=== PATIENT | male | born 1980 | race African-American/Black ===

== ENCOUNTER 2018-10-06 00:14 | Emergency (ER) | payer OTHER ==
[2018-10-06 00:38] VITALS: BMI 20.7
--- NOTE | 2018-10-06 02:16 | PDOC ---
History of Present Illness <Oz Hernandez - Last Filed: 10/06/18 04:54> - History of Present Illness Initial Comments: 38-year-old male with history of seizures presenting with seizure. Patient was watching television at home when he started seizing. Patient is taking Keppra twice a day and has not recently missed a dose. Last saw a neurologist at [facility] over five years ago. He does not know the name of the doctor who refills his Keppra. The seizure lasted for a couple minutes. He fell and hit the left side of his head. Patient reports tongue biting, but no urinary or fecal incontinence. Patient was confused for about five minutes until EMS arrived. Patient currently feels like he is at his baseline. Last seizures were two months ago and in Jan 2016. While he reports heavy alcohol use in the past, he only reports having only one drink last night. No recreational drug use. Denies headache, weakness, lightheadedness, dizziness, or focal neurologic defects. No nausea and vomiting. No fever, chills, chest pain, or shortness of breath. <Gaby Dangelo - Last Filed: 10/07/18 12:48> - General Chief Complaint: Seizure Stated Complaint: SEIZURES Time Seen by Provider: 10/06/18 01:11 Past History <Oz Hernandez - Last Filed: 10/06/18 04:54> - Past Medical History COPD: No Seizures: Yes - Suicide/Smoking/Psychosocial Hx Smoking History: Current every day smoker Number of Cigarettes Smoked Daily: 4 Information on smoking cessation initiated: No <Gaby Dangelo - Last Filed: 10/07/18 12:48> - Past Medical History Allergies/Adverse Reactions: Allergies Allergy/AdvReac Type Severity Reaction Status Date / Time No Known Allergies Allergy Verified 10/06/18 00:38 Home Medications: Ambulatory Orders levETIRAcetam [Keppra -] 500 mg PO BID #60 tablet 10/06/18 Review of Systems - Review of Systems Comments:: Constitutional: no fever, no chills HEENT: no throat pain, no dysphagia Cardiovascular: no chest pain, no palpitations Respiratory: no cough, no shortness of breath Gastrointestinal: no abdominal pain, no nausea, no vomiting Genitourinary: no dysuria, no frequency Musculoskeletal: no myalgia, no arthralgia Skin: +swelling, no itching Neurologic: no headache, no dizziness <Gaby Dangelo - Last Filed: 10/07/18 12:48> *Physical Exam - Vital Signs Last Vital Signs Temp Pulse Resp BP Pulse Ox 98 F 78 18 162/95 98 10/06/18 00:35 10/06/18 00:35 10/06/18 00:35 10/06/18 00:35 10/06/18 00:35 <Oz Hernandez - Last Filed: 10/06/18 04:54> - Vital Signs Last Vital Signs Temp Pulse Resp BP Pulse Ox 98 F 78 18 162/95 98 10/06/18 00:35 10/06/18 00:35 10/06/18 00:35 10/06/18 00:35 10/06/18 00:35 - Physical Exam Comments: General: Awake, alert, and fully oriented, in no acute distress Head: Swelling around left eye, Swelling on left side of head; no wounds or lesions Eyes: EOMI, sclera anicteric ENT: Moist mucus membranes; tongue lacerations present on right and left side of tongue, hemostatic Neck: Normal ROM, supple Lungs: Lungs clear, Normal breath sounds Cardio: Regular rhythm, S1 and S2 present Abdomen: Soft, nontender. No guarding, no rebound, no masses Extremities: Normal range of motion, Distal pulses present SKIN: Warm, Dry, normal turgor Neurologic: Cranial nerves II through XII grossly intact. Normal speech, sensation, strength, coordination. Tremors noted in hands bilaterally. No pronator drift. Tongue fasciulations present. <Gaby Dangelo - Last Filed: 10/07/18 12:48> ED Treatment Course - LABORATORY CBC & Chemistry Diagram: 10/06/18 02:18 10/06/18 02:18 - ADDITIONAL ORDERS Additional order review: Laboratory Results 10/06/18 10/06/18 10/06/18 02:51 02:18 02:18 Sodium 135 L Potassium 4.1 Chloride 96 L Carbon Dioxide 32 Anion Gap 7 L BUN 8 Creatinine 1.0 Creat Clearance w eGFR > 60 POC Glucometer 97.34123 Random Glucose 95 Calcium 9.6 Total Bilirubin 1.5 H AST 142 H ALT 70 H Alkaline Phosphatase 100 Total Protein 8.9 H Albumin 4.5 Alcohol, Quantitative < 3.0 10/06/18 10/06/18 02:51 02:18 RBC 4.62 MCV 92.1 MCHC 34.7 RDW 13.9 MPV 8.3 Neutrophils % 83.1 H Lymphocytes % 8.1 Monocytes % 7.8 Eosinophils % 0.3 Basophils % 0.7 POC Glucometer 97.88407 - Medications Given in the ED: ED Medications Discontinued Medications Generic Name Dose Route Start Last Admin Trade Name Siddhartha PRN Reason Stop Dose Admin Sodium Chloride 1,000 mls @ 1,000 mls/hr 10/06/18 02:17 10/06/18 02:33 Normal Saline - IV 10/06/18 03:16 1,000 mls/hr ASDIR STA Administration <Oz Hernandez - Last Filed: 10/06/18 04:54> - LABORATORY CBC & Chemistry Diagram: 10/06/18 02:18 10/06/18 02:18 <Gaby Dangelo - Last Filed: 10/07/18 12:48> Medical Decision Making - Medical Decision Making 38-year-old male with history of seizures presenting with seizure. -DDX includes but not limited to seizure, syncopal episode, trauma, tumor, infection, etoh withdrawal, hypoglycemia, recreational drug use -Labs -EKG 10/06/18 02:27 Patient care assumed by Dr. Hernandez 10/06/18 02:58 <Gaby Dangelo - Last Filed: 10/07/18 12:48> *DC/Admit/Observation/Transfer <Oz Hernandez - Last Filed: 10/06/18 04:54> <Gaby Dangelo - Last Filed: 10/07/18 12:48> Diagnosis at time of Disposition: Breakthrough seizure - Discharge Dispostion Disposition: HOME Condition at time of disposition: Stable - Prescriptions Prescriptions: levETIRAcetam [Keppra -] 500 mg PO BID #60 tablet - Referrals Referrals: Yonny Figueroa MD [Staff Physician] - Call tomorrow - Patient Instructions Printed Discharge Instructions: DI for Seizure Disorder -- Adult
[2018-10-06] MEDS ORDERED: SODIUM CHLORIDE 1,000 ML IV STA (02:17)
[2018-10-06 02:25] LABS: BASO % 0.7 % (0-2.0); EOS % 0.3 % (0-4.5); HEMATOCRIT 42.6 % (35.4-49); HEMOGLOBIN 14.8 GM/dL (11.7-16.9); LYMPH % 8.1 % (8-40); MCHC 34.7 g/dl (32.0-35.9); MEAN CELL VOLUME 92.1 fl (80-96); MEAN PLT VOLUME 8.3 fl (7.5-11.1); MONO % 7.8 % (3.8-10.2); NEUT % 83.1 % (42.8-82.8); PLATELET COUNT 115 K/MM3 (134-434); RBC 4.62 M/mm3 (4.00-5.60); RDW 13.9 % (11.9-15.9); WHITE BLOOD COUNT 6.5 K/mm3 (4.0-10.0)
[2018-10-06 02:49] LABS: ALBUMIN 4.5 g/dl (3.4-5.0); ALK PHOS 100 U/L (45-117); ANION GAP 7 MMOL/L (8-16); BILIRUBIN,TOTAL 1.5 mg/dL (0.2-1); BLOOD UREA NITROGEN 8 mg/dL (7-18); CALCIUM 9.6 mg/dL (8.5-10.1); CHLORIDE 96 mmol/L (98-107); CO2 32 mmol/L (21-32); GLUCOSE,RANDOM 95 mg/dL (74-106); POTASSIUM 4.1 mmol/L (3.5-5.1); SGOT/AST 142 U/L (15-37); SGPT/ALT 70 U/L (13-61); SODIUM 135 mmol/L (136-145); TOT PROT 8.9 g/dl (6.4-8.2)
--- NOTE | 2018-10-06 06:01 | PDOC ---
Attending Attestation - Resident Resident Name: Gaby Dangelo - ED Attending Attestation I have performed the following: I have examined & evaluated the patient, The case was reviewed & discussed with the resident, I agree w/resident's findings & plan, Exceptions are as noted - HPI HPI: 10/06/18 05:53 breakthrough seizure adherent to keppra endorses daily beer consumption to me - Physicial Exam PE: 10/06/18 05:54 awake and alert slightly tremoulous ecchymosis and abrasion around L eye but normal VA and EOM - Medical Decision Making 10/06/18 06:01 breakthrough seizure observed overnight in ED counseled re: etoh use neurology fu
[2018-10-06 06:11] VITALS: BP 126/71; PULSE 77; TEMP 98.2
--- NOTE | 2018-10-06 10:28 | EKG ---
Test Reason : Blood Pressure : / mmHG Vent. Rate : 086 BPM Atrial Rate : 086 BPM P-R Int : 148 ms QRS Dur : 092 ms QT Int : 392 ms P-R-T Axes : 071 078 069 degrees QTc Int : 469 ms NORMAL SINUS RHYTHM VOLTAGE CRITERIA FOR LEFT VENTRICULAR HYPERTROPHY SEPTAL INFARCT , AGE UNDETERMINED ABNORMAL ECG NO PREVIOUS ECGS AVAILABLE Confirmed by PAN CHRIS MD ([id number]) on 10/06/2018 10:27:53 AM Referred By: Confirmed By:PAN CHRIS MD
== END 2018-10-06 06:11 | disposition home or self-care (01) ==
LOC: JER 00:14
PROC: 3E0337Z Introduction of Electrolytic and Water Balance Substance into Peripheral Vein, Percutaneous Approach (ICD-10-PCS; principal; 2018-10-06)
DX: G40.919 Epilepsy, unspecified, intractable, without status epilepticus (principal)
CPT/HCPCS: 36415; 80053; 80177; 80307; 82962; 85025; 93005; 93010; 96360; 99282-25; J7030